=== PATIENT | male | born 1965 | race Caucasian/White ===

== ENCOUNTER 2018-07-12 11:08 | Day surgery (SDC) | payer BC ==
[~2018-07-12 11:08] MED LIST: Lactated Ringers 1,000 ML IV SCH; Midazolam 1 MG/ML 2 ML SDV ONE; Propofol 200 MG/20 ML SDV ONE; Sodium Chloride 0.9% 10 ML Syringe FLUSH PRN
--- NOTE | 2018-07-12 12:14 | PCM.HPR ---
H & P Addendum review - H & P Addendum Review Date of Original H & P: 07/06/18 Date Reviewed: 07/12/18 Time Reviewed: 12:14 Patient was Examined: No Changes
[2018-07-12] MEDS ORDERED: Propofol 200 MG/20 ML SDV ONE (12:18)
[2018-07-12] MEDS ORDERED: Midazolam 1 MG/ML 2 ML SDV ONE (12:18)
--- NOTE | 2018-07-12 12:43 | PCM.OPNOTE ---
- General Post-Op/Procedure Note Date of Surgery/Procedure: 07/12/18 Operative Procedure(s): Colonoscopy with polypectomy Findings: 2 polyps Pre Op Diagnosis: FH Polyps Post-Op Diagnosis: Same Anesthesia Technique: MAC Primary Surgeon: Torres Mccoy Anesthesia Provider: Delores Call EBGabby in mLs: 0 Complications: None Condition: Good
--- NOTE | 2018-07-13 09:12 | OR ---
Date of Procedure: 07/12/2018 PREOPERATIVE DIAGNOSIS: Family history of colon polyps. POSTOPERATIVE DIAGNOSIS: 1. Colon polyps. 2. Sigmoid diverticulosis. PROCEDURE: Colonoscopy with polypectomy. ANESTHESIA: IV sedation. PROCEDURE IN DETAIL: The patient was brought to the procedure room where he was placed in his left side and IV sedation administered. Digital rectal exam was performed which was normal. Colonoscope was inserted and advanced to the level of the cecum without difficulty. Cecal position was confirmed by identifying the appendiceal lumen and ileocecal valve. The ileocecal valve prep was good and surfaces were well visualized. Near the appendiceal orifice with a 4-mm sessile polyps, removed via hot biopsy, forceps, and sent for pathology review. The ascending, transverse, and descending colon were normal. In the sigmoid colon at 55 cm was a 6 mm sessile polyp also removed with the hot biopsy forceps. Sigmoid colon also had a few diverticula present. Rectum was normal and retroflexion was normal. Air was removed and the scope was withdrawn. Patient tolerated the procedure well and returned to recovery in stable condition. Patient will follow up with Chasidy Archuleta for review of pathology report. If any polyps are adenomatous, he should undergo a repeat colonoscopy again in three years. If both polyps are hyperplastic, he could wait 5 years until his next surveillance colonoscopy. JEZ COX MD /[id number]
== END 2018-07-12 14:03 | disposition home or self-care (01) ==
LOC: LL.SDS 11:08
PROVIDERS: ATTEND Surgery
DX: D12.0 Benign neoplasm of cecum (principal); D12.5 Benign neoplasm of sigmoid colon; K57.30 Diverticulosis of large intestine without perforation or abscess without bleeding; Z80.0 Family history of malignant neoplasm of digestive organs; I10 Essential (primary) hypertension; Z79.82 Long term (current) use of aspirin; Z79.899 Other long term (current) drug therapy; Z88.8 Allergy status to other drugs, medicaments and biological substances
CPT/HCPCS: J2250; J2704; J7120